=== PATIENT | male | born 1990 | race Hispanic/Latino ===

== ENCOUNTER 2020-04-12 18:46 | Emergency (ER) | payer OTHER, SELFPAY ==
[2020-04-14 14:21] LABS: SARS-CoV-2 MS2 Positive; SARS-CoV-2 N Gene Positive; SARS-CoV-2 S Gene Positive; SARS-CoV-2 orf1ab Positive
== END 2020-04-12 19:10 | disposition home or self-care (01) ==
LOC: NAV ERS 18:46
DX: U07.1 COVID-19 (principal); F17.210 Nicotine dependence, cigarettes, uncomplicated
CPT/HCPCS: 87635; 99283; U0003

== ENCOUNTER 2021-09-24 20:07 | Emergency (ER) | payer OTHER ==
[2021-09-24] MEDS ORDERED: Ketorolac Tromethamine 60 MG/2 ML VIAL ONE (20:55)
[2021-09-26 15:41] LABS: SARS-CoV-2 PCR by NAA Not Detected (NotDetected)
== END 2021-09-24 21:11 | disposition home or self-care (01) ==
LOC: NAV ERS 20:07
DX: S60.012A Contusion of left thumb without damage to nail, initial encounter (principal); Z20.822 Contact with and (suspected) exposure to COVID-19; W22.8XXA Striking against or struck by other objects, initial encounter; F17.210 Nicotine dependence, cigarettes, uncomplicated
CPT/HCPCS: J1885; U0003; U0005